=== PATIENT | male | born 1975 | race Caucasian/White ===

== ENCOUNTER 2024-07-13 06:17 | Day surgery (SDC) | payer OTHER, SELFPAY | END 2024-07-13 09:05 | disposition home or self-care (01) | LOC: GI 06:17 | PROVIDERS: ATTENDING PHYSICIAN Internal Medicine | DX: Z12.11 Encounter for screening for malignant neoplasm of colon (principal); K57.30 Diverticulosis of large intestine without perforation or abscess without bleeding; D12.7 Benign neoplasm of rectosigmoid junction; K62.1 Rectal polyp; D12.5 Benign neoplasm of sigmoid colon | CPT/HCPCS: 45385; 45380; 88305 ==